=== PATIENT | female | born 1960 | race Caucasian/White ===

== ENCOUNTER 2023-07-20 11:18 | Outpatient (CLI) | payer BC, SELFPAY ==
[2023-07-20 10:31] LABS: Bilirubin Negative (Negative); Blood Negative (Negative); Clarity Clear (Clear); Glucose Negative (Negative); Ketones Negative (Negative); Leukocyte Esterase Negative (Negative); Nitrite Negative (Negative); Specific Gravity 1.015 (1.005-1.025); Urobilinogen 0.2 mg/dL (Up to 0.2); pH 7.5 (5-8)
[2023-07-20 10:32] LABS: Absolute Basophil Count 0.01 10^3/uL (0.0-0.2); Absolute Eosinophil Count 0.09 10^3/uL (0.0-0.7); Absolute Lymphocyte Count 1.76 10^3/uL (1.2-3.4); Absolute Monocyte Count 0.24 10^3/uL (0.1-0.8); Absolute Neutrophil Count 2.02 10^3/uL (1.2-6.7); Basophils % 0.2; Eosinophils % 2.2; HCT 35.9 % (36.0-46.0); HGB 12.3 g/dL (11.2-15.7); Lymphocytes % 42.7; MCHC 34.3 % (32.0-36.0); MCV 85 fL (80-95); MPV 10.1 fL (8.0-11.0); Monocytes % 5.8; Neutrophils % 49.1; Platelet Count 139 10^3/uL (130-400); RBC 4.24 10^6/uL (3.93-5.22); RDW 13.7 % (11.7-14.6); RDW-SD 42.5 fL; WBC 4.12 10^3/uL (4.4-10.8)
[2023-07-20 10:43] LABS: INR 1.1 (0.9-1.1); Prothrombin Time 11.1 sec (9.1-11.1)
[2023-07-20 11:03] LABS: D-Dimer 557 ng/mlFEU (<500)
[2023-07-20 11:08] LABS: ALT 20 U/L (14-59); AST 15 U/L (15-37); Albumin 3.7 g/dL (3.4-5.0); Alkaline Phosphatase 70 U/L (46-116); Anion Gap 6.3 mmol/L (3-11); BUN 16 mg/dL (7-18); Bilirubin, Total 0.5 mg/dL (0.2-1.0); CO2 28.7 mmol/L (21.0-32.0); Calcium 9.2 mg/dL (8.5-10.1); Chloride 107 mmol/L (98-107); Estimated GFR 64.09 (mL/min/1.73m2); Glucose 91 mg/dL (74-106); NT-proBNP 183 pg/mL (<300); PHOSPHORUS 3.7 mg/dL (2.6-4.7); Potassium 3.5 mmol/L (3.5-5.1); Sodium 142 mmol/L (136-145); TSH (W/Ref FT4) 2.68 uIU/mL (0.36-3.74); Total Protein 7.2 g/dL (6.4-8.2); Troponin I < 50 ng/L (<or=60)
[2023-07-20 11:13] LABS: Iron 99 ug/dL (50-170); Total Iron Binding Capacity 242 ug/dL (250-450); Transferrin Sat 41 % (15-50)
[2023-07-20 11:42] LABS: Vitamin D 25 Total 27.4 ng/mL (30-100)
[2023-07-20 11:48] LABS: Cholesterol 176 mg/dL (<200); Ferritin 99 ng/mL (8-252); Folate 19.7 ng/mL (8.6-20.0); HDL Cholesterol 53 mg/dL (40-60); Triglyceride <25 mg/dL (<150); Vitamin B12 507 pg/mL (193-986)
[2023-07-20 12:01] LABS: LDL CHOLESTEROL 112 mg/dL (<100)
[2023-07-21 23:00] LABS: Food Panel <0.10 kU/L (<0.70)
[2023-07-22 11:18] LABS: Alternaria Tenuis IgE <0.10 kU/L (<0.70); Aspergillus Fumigatus IgE <0.10 kU/L (<0.70); Bermuda Grass IgE <0.10 kU/L (<0.70); Cat Epithelium IgE <0.10 kU/L (<0.70); Cladosporium IgE <0.10 kU/L (<0.70); Cockroach IgE 0.14 kU/L (<0.70); Cottonwood IgE <0.10 kU/L (<0.70); D Farinae IgE <0.10 kU/L (<0.70); D Pteronyssinus IgE <0.10 kU/L (<0.70); Dog Dander IgE <0.10 kU/L (<0.70); Elm IgE <0.10 kU/L (<0.70); Mountain Cedar IgE <0.10 kU/L (<0.70); Oak IgE <0.10 kU/L (<0.70); Red Sorrel IgE <0.10 kU/L (<0.70); Rough Pigweed IgE <0.10 kU/L (<0.70); Short Ragweed IgE <0.10 kU/L (<0.70); Silver Birch IgE <0.10 kU/L (<0.70); Timothy Grass IgE <0.10 kU/L (<0.70)
[2023-07-23 11:04] LABS: Factor V Leiden(R506Q) Mut Negative (Negative)
== END 2023-07-20 11:19 | disposition home or self-care (01) ==
LOC: LBO 11:19
PROVIDERS: Visit Provider Internal Medicine
DX: D64.9 Anemia, unspecified (principal); E87.8 Other disorders of electrolyte and fluid balance, not elsewhere classified; E78.2 Mixed hyperlipidemia; B50.9 Plasmodium falciparum malaria, unspecified; E03.9 Hypothyroidism, unspecified; J45.901 Unspecified asthma with (acute) exacerbation
CPT/HCPCS: 36415; 80053; 80061; 81241; 82306; 82785; 83721; 86003; 81003; 82607; 82728; 82746; 83540; 83550; 83880; 84100; 84443; 84484; 85025; 85379; 85610

== ENCOUNTER 2024-01-03 15:45 | Outpatient (CLI) | payer BC, SELFPAY ==
[2024-01-03 17:18] LABS: TSH (W/Ref FT4) 3.97 uIU/mL (0.36-3.74)
[2024-01-03 17:41] LABS: FREE T4 0.95 ng/dL (0.76-1.46)
[2024-01-04 17:46] LABS: Estradiol <12 pg/mL (See Note)
[2024-01-04 17:55] LABS: FSH 67.4 mIU/mL (See Note)
== END 2024-01-03 15:46 | disposition home or self-care (01) ==
LOC: LBO 15:46
PROVIDERS: Visit Provider Obstetrics & Gynecology
DX: R23.2 Flushing (principal)
CPT/HCPCS: 36415; 82670; 83001; 84439; 84443